=== PATIENT | female | born 1975 | race African-American/Black ===

== ENCOUNTER 2016-10-19 06:06 | Day surgery (SDC) | payer OTHER ==
--- NOTE | 2016-10-18 21:42 | PDHPUP ---
History & Physical Update H&P update statement: This history and physical update is based on an assessment of the patient which was completed after admission or registration (within 24 hours), but prior to the surgery/procedure. 1. 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 Bilateral Femoroacetabular Impingement 3. S/P Right ROMAN 2014 (Dr. Soliz), without intra articular work 4. Right AIIS impingement (S/P ROMAN) HISTORY OF PRESENT ILLNESS: Demiis a 40 y.o.~very ~active female~who I have had the pleasure to consult on today.~I have enjoyed meeting her. She~lives in [place], [place]. ~Demi works as a pilates teacher. ~She~is ; she~has 3 children. ~Demienjoys running, basketball, volleyball, and walking. Yolis bilateral (L>R) ~hip pain started in 2013, with some~recalled trauma or injury~(she fell onto her left hip and broke left wrist breaking her fall), and with some~previous complaints.~Demihas~a known history of hip dysplasia. Presentation today is of~anterolateral, anterior and posterior left~hip pain. ~ The hip does not~wake her~at night and does~click and catch on her. Sitting can be a real struggle for her. Demidoes~report suffering from lower back pain episodes, she has a history of right sided lumbar radicular symptoms. Demihas not~participated in physical therapy and has not~tried other conservative measures. ~Demihas~utilized medication for pain management, including NSAID. Demi has used medication since the pain started. Demihas issues with the right hip. ~ Demiunderstands that she~has a hip and pelvis problem which should be researched and wishes to get a better understanding of her~hip status, followed by an establishment of a treatment strategy, hoping she~would be able to get back to her~well being active life. History: Past medical history: ~ None which is relevant Relevant familial history: None which is relevant Past surgical history: No. Surgery Anesthesia Year 1 Right ROMAN (Dr. Soliz) general 2014 2 Abdominalplasty general 2013 3 Right hip screw removal general 2015 Demidenies problematic issues with general anesthesia in the past. I have reviewed, verified and agree with the past medical, surgical, family and social history. Current Medications:~has a current medication list which includes the following prescription(s): ibuprofen. ALLERGIES:~is allergic to adhesive tape-silicones. Objective: Physical Examination: Demiis 5 feet 11~inches tall and weighs~166~Lbs. Demiis AAO x3; she~is well-nourished, in NAD. Skin is warm and dry. ~Breathing is non-labored. ~CV with RRR by pulse. Abdomen is soft, NTND. Currently, she~walks with a normal~gait. Trendelenburg sign is positive and proprioception~is reduced, right~side. She~presents~with mild~signs of joint laxity.~Beightons Score: 2 She~is fit looking. ~~ Lower spine examination is negative~for sciatic or femoral nerve irritation with negative~SLR &~femoral stretch tests. Range of motion of the spine is normal~for flexion, extension, and rotations, with no~associated pain. Strength, Sensation and pulses are normal - bilaterally Ankles and knees exams are normal~and no~mal-alignment is evident. She~has~no leg length discrepancy. Thigh circumference is symmetric with no evidence for muscle atrophy on both~ sides. Hip ROM (degrees): FL ER At 90~hip FL IR At 90~hip FL AB AD EX IR Neutral hip ER Neutral hip R 95 45 10 40 5 5 40 25 L 95 40 30 40 5 10 50 15 Specific hip and pelvis tests: Quadrant NAHOMY Roll Add. Longus R ++ ++ Posterior Negative + L +++ +++ Negative + Glut. Med ITB Pos. Imp R Negative 5/5 strength Negative 5/5 strength Negative L Negative 5/5 strength Negative 5/5 strength Negative Squeeze test measured strong Bony Symphysis pubis is pain free to touch while concentric activity of the rectus abdominis, does not~produce pain at its insertion. Ilio Psos specific tests are negative for pain during cycling for both hips~and remarkable for Right Sided non painful snap. HF has good strength and no pain both hips. No anterior capsule tenderness bilaterally with palpation. ~Left sided lateral capsule tenderness with palpation. Greater trochanteric burse is pain free on both hips. Piriformis tests: FAIR is negative, with no local signs of neuritis related to sciatic nerve. SIJs examination is produces pain on both side with normal NAHOMY in relation and local tenderness. Hamstrings tests are negative~functional contraction and negative~tendinopathy both hips. Imaging: Radiology studies which I~have personally reviewed, analyzed and measured are below: XR: AP of the hip and pelvis: Performed in a good~technique Coccyx to pubic symphysis distance 2.5 cm. 0 degrees [place]~Lines are preserved. Minimal Pathological signs are seen in the Symphysis Pubis. Minimal Pathological signs are seen at the Ischial~tuberosity. ~ Specific measurements show: NSA~ LCE Sourcil~Angle Sharp's angle Lat. Cam Lat. Pincer C.Over~sign Head~Coverage % ATDmm R 145 25 6 n/a + - N N N L 145 5 19 48 + - N 60 N Pos. wall sign ISS NAD ~~Dysplasia Comments R + Negative 13.4 mm Negative L + Negative 13.9 mm ++ Sclerosis Sup. Lat. OA Cysts Joint Space-WBZ Joint Space-Medial R + Negative Negative 3.8 mm 6.7 mm L + Negative Negative 3.4 mm 7.1 mm X Table lateral: Anterior cam lesion is seen~on both hips. Alpha Angle: ~ Right 77 dergrees Left 75 degrees MRI shows: labral tears, good cartilage quality, no bone edema or subchondral cysts - good and viable joint's status with good dGEMRIC values. CT: MEASUREMENTS: Right hip: Lateral center edge angle: 29 degrees Anterior center edge angle: 51 degrees Equatorial acetabular version angle: 33 degrees anteverted. Cranial acetabular version angle: 3 degrees anteverted. Femoral neck shaft angle: 145 degrees Femoral neck version angle: 19 degrees anteverted Femoral shaft torsion angle: 21 degrees Left hip: Lateral center edge angle: 16 degrees Anterior center edge angle: 51 degrees Equatorial acetabular version angle: 27 degrees anteverted. Cranial acetabular version angle: 1 degrees retroverted. Femoral neck shaft angle: 148 degrees Femoral neck version angle: 16 degrees anteverted Femoral shaft torsion angle: 24 degrees Impression and plan:~ Christiano~is a 40 y.o.~active female~suffering from symptomatic left hip pain due to Left~Hip Dyplasia~causing significant disability to her~and altering~her~ sport and life activities. I addition she has symptoms in her Right, post ROMAN, hip which corresponds with AIIS impingement and possible some intra articular irritation. Physical examination, imaging, and her~story correspond with the diagnosis mentioned above. I explained that hip dysplasia is a condition wherein the hip joint has excessive play~and instability due to a variety of factors, including the depth and adequacy of the socket, the orientation of the femur bone, and ligament laxity around the hip joint. Dysplasia ranges in severity from borderline to marisel, with treatment options being specific to the specific nature of the problem. Left untreated, the instability in the hip joint can cause progressive tearing of the labrum and deterioration of the surface cartilage, ultimately resulting in progressive osteoarthritis of the hip. I explained that femoroacetabular impingement (RODGER - Cam type) arises due to a bony or soft tissue conflict between the femur (ball) and acetabulum (socket) caused by an abnormality in the shape of the femoral head and neck. Over time, repetitive impingement can result in damage to the labrum and adjacent surface cartilage within the socket, ultimately giving rise to progressive osteoarthritis of the hip. I explained that although a labral tear can be a source of pain, it is rarely the root of the problem and typically occurs secondary to an underlying abnormality in the shape and mechanics of the hip joint. I reviewed conservative treatment options for Dysplasia and RODGER including activity modification to avoid positions of impingement or instability, physical therapy, non-steroidal anti-inflammatory medications, and various injections (corticosteroid and PRP) aimed at reducing inflammation in the hip joint or/and preventing dynamic instability and impingement. PRP injections may promote healing and reduce symptoms in certain cases but it will not repair chronically damaged tissue. Although these measures may help to buy time~and reduce current level of symptoms, they are not a definitive solution to the problem given the underlying abnormality in the shape of the hip joint. Patients who have failed conservative management and continue to experience symptoms are candidates for definitive surgical treatment, which may consist of hip arthroscopy alone or in combination with more invasive bony realignment procedures of the hip socket and/or femur called periacetabular osteotomy (ROMAN) or derotational femoral osteotomy (DFO). Hip arthroscopy typically includes treating the labrum with either repair or reconstruction of the torn labrum; as well as addressing the underlying abnormalities by restoring the normal shape to the hip joint. If the cartilage is damaged a Microfracture surgical procedure may also be necessary to help stimulate the growth of fibrocartilage. If a patient requires a labral reconstruction or a Microfracture, the initial rehabilitation from the surgery may take longer, but the fdc results are typically favorable. I reviewed the technical aspects of hip arthroscopy including risks, benefits, and expected course of recovery. Christiano~understands that hip arthroscopy is a minimally invasive outpatient procedure carried out through small incisions on the outer aspect of the hip joint. During surgery, the labral tear will be identified and either repaired or reconstructed~using bone anchors and suture material. Additionally, any excessive bone will be removed with a high-speed kindra to reshape the hip joint and restore normal anatomy. Risks include infection, bleeding, injury to nearby nerves or vessels, stiffness, persistent pain, instability, venous thromboembolic disease, and traction related complications including temporary foot numbness. Rarely, revision surgery may be required to address these problems. Overall recovery takes approximately 4~~ 8~months depending on the extent of damage and degree of repair. In the event that the labral tissue quality is inadequate for successful repair and healing, Christiano~understands that a labral reconstruction will be performed. This procedure entails placing a cadaver tissue graft within the hip joint and stabilizing it with bone anchors to build a new labrum. The overall recovery time for labral reconstruction is similar to that of labral repair, although the surgical procedure takes longer to perform. I reviewed the technical aspects of periacetabular osteotomy (ROMAN) including risks, benefits, and expected course of recovery. Christiano~understands that ROMAN is an inpatient procedure carried out through two medium sized incisions on the front and back of the hip joint. The hip socket is cut, realigned, and stabilized with 2 ~3 internal screws. Risks include infection, bleeding, injury to nearby nerves or vessels, stiffness, persistent pain, instability, failure of bony healing, implant related complications, and venous thromboembolic disease. Rarely, revision surgery may be required to address these problems. Risks, potential complications, side effects and recovery from surgical procedure were discussed in length. We explained how this surgery is an open procedure, and though patients tend to do well in the long-term, it involves significant pain in the first 2-4 weeks post-op and a rather lengthy rehab.~Overall recovery takes approximately 6 ~12~months depending on the extent of damage and degree of repair. Demiunderstands that she~will undergo hip arthroscopy 1 week prior to the ROMAN to address damage inside the hip joint. Demiunderstands that hip arthroscopy and ROMAN are two separate procedures that are best performed one week apart, with the arthroscopy commencing first to "tighten up" any pathology evident in the hip joint (labral repair, etc.) and the ROMAN open procedure occurring 7-10 days later to realign the acetabulum. Demiwill review the info presented. In order to obtain more detailed information regarding the alignment, orientation, and shape of the bony hip and pelvis I will order a CT scan to be performed. The results of the CT scan, including femoral torsion and acetabular version measured values and 3D images, will aid me in deciding on the best treatment strategy and surgical pre-planning~(this was done today). Demiwill contact us if she~wishes to pursue further treatment in the future. Demiis happy with this plan. I have also supplied her~with handouts, outlining the expected surgical treatment and rehab involved. I wish~ChristianoMaddyall the best, ~~ Landon Koo, PAC
[~2016-10-19 06:06] MED LIST: ACETAMINOPHEN 500 MG TAB PO ONE; PREGABALIN 150 MG CAP PO ONE; ceFAZolin 2 GM/DEXTROSE 100 ML IV ONE
[2016-10-19] MEDS ORDERED: LIDOCAINE 1% 2 ML INJ ID PRN (06:34)
[2016-10-19] MEDS ORDERED: LR 1,000 ML IV ONE (06:34)
[2016-10-19] MEDS ORDERED: ONDANSETRON 4 MG/2 ML VIAL IVP PRN (06:42)
[2016-10-19] MEDS ORDERED: ONDANSETRON DISINTEGRATING 4 MG TAB PO PRN (06:42)
[2016-10-19] MEDS ORDERED: OXYCODONE/APAP 5/325 TAB PO PRN ×2 (06:42→13:00)
[2016-10-19] MEDS ORDERED: ACETAMINOPHEN 500 MG TAB PO ONE (07:00)
[2016-10-19] MEDS ORDERED: ceFAZolin 2 GM/DEXTROSE 100 ML IV ONE (07:00)
[2016-10-19] MEDS ORDERED: PREGABALIN 150 MG CAP PO ONE (07:00)
--- NOTE | 2016-10-19 07:21 | PDANEPAE ---
ANE History of Present Illness Right Hip arthroscopy ANE Past Medical History - Cardiovascular History Hx Hypertension: No Hx Arrhythmias: No Hx Chest Pain: No Hx Coronary Artery / Peripheral Vascular Disease: No Hx CHF / Valvular Disease: No Hx Palpitations: No - Pulmonary History Hx COPD: No Hx Asthma/Reactive Airway Disease: No Hx Recent Upper Respiratory Infection: No Hx Oxygen in Use at Home: No - Neurologic History Hx Cerebrovascular Accident: No Hx Seizures: No Hx Dementia: No - Endocrine History Hx Diabetes: No Hypothyroid: No Hyperthyroid: No - Renal History Hx Renal Disorders: No - Liver History Hx Hepatic Disorders: No - Neurological & Psychiatric Hx Hx Neurological and Psychiatric Disorders: No - Cancer History Hx Cancer: No - Congenital Disorder History Hx Congenital Disorders: No - GI History Hx Gastrointestinal Disorders: No - Chronic Pain History Chronic Pain: No ANE Review of Systems - Exercise capacity METS (RN): 5 METS ANE Patient History - Allergies Allergies/Adverse Reactions: adhesive tape Allergy (Verified 09/23/16 16:27) - Smoking Hx Smoking Status: Never smoked - Family Anes Hx Family Hx Anesthesia Complications: NONE ANE Labs/Vital Signs - Vital Signs Height: 180.34 cm Weight: 76.204 kg ANE Physical Exam - ASA Status ASA Status: I ANE Anesthesia Plan Anesthesia Plan: GA w LMA
[2016-10-19] MEDS ORDERED: BUPIVACAINE/EPI 0.25% 30 ML SDV ONE (07:28)
[2016-10-19] MEDS ORDERED: EPINEPHrine 30 MG/30 ML MDV ONE (07:28)
[2016-10-19] MEDS ORDERED: MIDAZOLAM 2 MG/2 ML VIAL ONE (08:01)
[2016-10-19] MEDS ORDERED: fentaNYL 100 MCG/2 ML INJ ONE ×3 (08:02→13:18)
[2016-10-19] MEDS ORDERED: PROPOFOL 200 MG/20 ML VIAL ONE ×2 (08:02→08:41)
[2016-10-19] MEDS ORDERED: METOCLOPRAMIDE 10 MG/2 ML VIAL ONE (08:04)
[2016-10-19] MEDS ORDERED: ONDANSETRON 4 MG/2 ML VIAL ONE (08:04)
[2016-10-19] MEDS ORDERED: LIDOCAINE 2% JELLY 5 ML TUBE ONE (08:04)
[2016-10-19] MEDS ORDERED: MEPERIDINE 25 MG/ML SYR IVP PRN (13:00)
[2016-10-19] MEDS ORDERED: PROMETHAZINE HCL 25 MG/ML INJ IVP PRN (13:00)
[2016-10-19] MEDS ORDERED: DEXAMETHASONE 4 MG/ML VIAL IVP PRN (13:00)
[2016-10-19] MEDS ORDERED: LR 500 ML IV PRN (13:00)
[2016-10-19] MEDS ORDERED: NALOXONE HCL 0.4 MG/ML INJ IVP PRN (13:00)
[2016-10-19] MEDS ORDERED: HYDROCODONE/APAP 5/325 TAB PO PRN (13:00)
--- NOTE | 2016-10-19 13:02 | POSTANESTH ---
Post Anesthetic Evaluation Cardiovascular Status: Normal, Stable Respiratory Status: Normal, Stable Level of Consciousness/Mental Status: Can Participate in Eval, Mildly Sleepy, Arousable Pain Control: Adequate, Prn Tx Ordered Nausea/Vomiting Control: Adequate, Prn Tx Ordered Complications Possibly Related to Anesthesia: None Noted
[2016-10-19] MEDS: fentaNYL 100 MCG/2 ML INJ IVP PRN ×2 (13:20→13:31)
[2016-10-19 14:42] VITALS: TEMP 97.7
[2016-10-19 15:17] VITALS: O2SAT 97
[2016-10-19 16:19] VITALS: RESP 14
[2016-10-19 17:57] VITALS: BP 114/83; PULSE 62
== END 2016-10-19 17:50 | disposition home or self-care (01) ==
LOC: FSGY 06:06
PROVIDERS: ATTEND Orthopaedic Surgery Sports Medicine
PROC: 0LR Tendons, Replacement (ICD-10-PCS; principal; 2016-10-19 08:15)
PROC: 0SB94ZZ Excision of Right Hip Joint, Percutaneous Endoscopic Approach (ICD-10-PCS; principal; 2016-10-19 08:15)
PROC: 0QQ64ZZ Repair Right Upper Femur, Percutaneous Endoscopic Approach (ICD-10-PCS; principal; 2016-10-19 08:15)
PROC: 0SQ94ZZ Repair Right Hip Joint, Percutaneous Endoscopic Approach (ICD-10-PCS; principal; 2016-10-19 08:15)
DX: M25.851 Other specified joint disorders, right hip (principal); Q65.89 Other specified congenital deformities of hip; M67.851 Other specified disorders of synovium, right hip; M25.551 Pain in right hip
CPT/HCPCS: 29914; 29916; 76001; C1769; C1713; C1762; J0690; J2250; J2405; J2704; J2765; J3010